=== PATIENT | female | born 2000 | race African-American/Black ===

== ENCOUNTER 2024-03-31 02:48 | Observation (INO) | payer OTHER, SELFPAY ==
[2024-03-31] VITALS (20 sets, daily range): BP systolic 109–123; BP diastolic 61–71; PULSE 97–116; TEMP 37; O2SAT 97–100; BMI 35.7
[2024-03-31] MEDS: LACTATED RINGERS 1,000 ML 999 ML IV CONT (02:48)
[2024-03-31] MEDS: NIFEdipine 10 MG CAPSULE PO (02:48)
[2024-03-31 03:50] LABS: Add Urine Microscopic? YES; Appearance Urine Clear (Clear); Bacteria Urine None Seen /hpf; Bilirubin Urine Negative (Negative); Blood Urine Negative (Negative); Color Urine Yellow (Yellow); Glucose Urine UA Negative (Negative); Ketones Urine Negative (Negative); Leukocyte Esterase Ur Negative LEU/UL (Negative); Nitrate Urine Negative (Negative); Non Pathogenic Casts 0-2; Protein Urine 1+ mg/dL (Negative); RBC Urine 0-2 /hpf (0-2); Specific Grav Ur 1.014 (1.001-1.035); Squamous Epithelial Cell Urine None Seen /hpf (Few); Urobilinogen Urine 0.2 mg/dL (<2.0); WBC Urine 0-5 /hpf (0-3); pH Urine 6.5 (5.0-9.0)
--- NOTE | 2024-04-03 13:07 | PM.OBTRLD ---
OB - Triage/Final Diagnosis Visit Information Comments/Additional reasons for admission: I have assessed the risk for this patient, Angie Smith, and determined that she would benefit from observation care. Evaluation Laboratory results: Laboratory Tests 03/31/24 01:30 Urine Color Yellow Urine Appearance Clear Urine pH 6.5 Ur Specific [place] 1.014 Urine Protein 1+ H Urine Glucose (UA) Negative Urine Ketones Negative Ur Blood (Man) Negative Urine Nitrate Negative Urine Bilirubin Negative Urine Urobilinogen 0.2 Leukocyte Esterase Rfl Negative Urine RBC 0-2 Urine WBC 0-5 Ur Squamous Epith Cells None seen Urine Bacteria None seen Urine Casts 0-2 Final Diagnosis (1) Irregular contractions: Code(s): O47.9 - False labor, unspecified Status: Acute
== END 2024-03-31 08:16 | disposition home or self-care (01) ==
PROVIDERS: Admitting Provider Obstetrics & Gynecology; Visit Provider Obstetrics & Gynecology
DX: O47.9 False labor, unspecified (principal); Z3A.00 Weeks of gestation of pregnancy not specified
CPT/HCPCS: 81001; A9270; G0378; G0379; J7120